=== PATIENT | female | born 1955 | race Caucasian/White ===

== ENCOUNTER 2016-11-21 14:33 | Emergency (ER) | payer OTHER ==
[~2016-11-21] VITALS: Ht 162.6 cm; Wt 94.5 kg
[~2016-11-21 14:33] MED LIST: ADVIL200 MG PO; ALBUTEROL SULF8.5 GM IH; ASPIR 8181 M1 PO; FLAGYL500 MG PO; HYCODAN SYRUP480 ML PO; LEVAQUIN750 MG PO; LEVOFLOXACIN500 MG PO; LORTAB 5-325 M1 EACH PO; LOSARTAN-HCTZ1 EAC1 PO; MOTRIN600 MG PO; MULTI VITAMIN1 EACH PO; PERCOCET 5/31 TABLET PO; PREDNISONE20 MG PO; ULTRAM50 MG PO
[2016-11-21 16:38] LABS: ADD MIUA? YES; BILIRUBIN NEGATIVE; BLOOD SMALL; COLOR YELLOW ((YELLOW)); GLUCOSE (STRIP) NEGATIVE; KETONES NEGATIVE; LEUKOCYTES TRACE; NITRITE NEGATIVE; PROTEIN (STRIP) NEGATIVE; SPECIFIC GRAVITY 1.005 (1.000-1.030); UROBILINOGEN 0.2 MG/DL (0.2-1.0)
[2016-11-21 16:57] LABS: BACTERIA RARE /HPF; EPITHELIAL CELLS RARE /HPF; MUCUS NONE SEEN /LPF; RED BLOOD CELLS 0-5 /HPF (0-5); UCUL ADDED? NO; UNCLASSIFIED CRYSTALS 1+ /HPF; WHITE BLOOD CELLS 0-5 /HPF (0-5)
[2016-11-21 17:04] LABS: CASTS NONE SEEN /LPF; CRYSTALS NONE SEEN
[2016-11-21] MEDS ORDERED: PREDNISONE10 MG PO (17:09)
[2016-11-21 17:40] VITALS: BP 169/100
== END 2016-11-21 17:41 | disposition home or self-care (01) ==
LOC: EME 14:33
DX: M54.16 Radiculopathy, lumbar region (principal); M62.838 Other muscle spasm; M79.651 Pain in right thigh; R30.0 Dysuria; I10 Essential (primary) hypertension
CPT/HCPCS: 81003; 99281; 99284; J1885